=== PATIENT | male | born 1975 | race Caucasian/White ===

== ENCOUNTER 2018-02-03 21:55 | Emergency (ER) | payer BC, OTHER ==
[~2018-02-03] VITALS: Ht 180.3 cm; Wt 81.6 kg
--- NOTE | 2018-02-03 22:00 | NUR ---
[facility] 79 [facility]C "OVERDOSE ON 4 PILLS OF PRESCRIBED XANAX. PT EASILY AROUSABLE. NAD NOTED. RESPIRATIONS EVEN AND UNLABORED. PT ON MONITOR. WAITING ER MD EVALUATION
--- NOTE | 2018-02-03 22:27 | NUR ---
CONTINUOUS CONVEYOR SCREEN DRIER AT BEDSIDE FOR LABS
[2018-02-03 22:40] LABS: BASOPHILS % (AUTO) 0.3 % (0.0-2.0); EOSINOPHILS % (AUTO) 0.3 % (0.0-6.0); HEMATOCRIT 46 % (39-51); LYMPHOCYTES # (AUTO) 1.5 /CMM (0.8-4.8); LYMPHOCYTES % (AUTO) 19.1 % (20.0-44.0); MEAN CORPUSCULAR HEMOGLOBIN 30 PG (26.0-33.0); MEAN CORPUSCULAR HGB CONC 33 g/dl (31.0-36.0); MEAN CORPUSCULAR VOLUME 91 fL (80-96); MONOCYTES # (AUTO) 1.2 /CMM (0.1-1.30); NEUTROPHILS % (AUTO) 64.3 % (43.0-81.0); PLATELET COUNT (AUTO) 243 /CMM (150-450); RDW COEFFICIENT OF VARIATION 14.3 (11.5-15.0); RED BLOOD CELL COUNT(AUTO) 5.04 MIL/uL (4.5-6.0); WHITE BLOOD COUNT (AUTO) 7.8 K/uL (4.3-11.0)
[2018-02-03 22:52] LABS: CALCIUM, SERUM 8.6 mg/dL (8.5-10.1); CARBON DIOXIDE 23 mmol/L (21-32); CHLORIDE 102 mmol/L (98-107); CREATININE 1.4 mg/dL (0.6-1.3); GLUCOSE 125 mg/dL (74-106); POTASSIUM 3.5 mmol/L (3.5-5.1); SODIUM SERUM 138 mmol/L (136-145); UREA NITROGEN, BLOOD 24 mg/dL (7-18)
--- NOTE | 2018-02-03 22:54 | NUR ---
PT TO CT.
[2018-02-03 22:59] LABS: ALANINE AMINOTRANSFERASE 63 U/L (12-78); ALBUMIN 4.3 g/dL (3.4-5.0); ALCOHOL, BLOOD < 3 mg/dL (0-0); ALKALINE PHOSPHATASE 78 U/L (46-116); ASPARTATE AMINOTRANSFERASE 170 U/L (15-37); BILIRUBIN,DIRECT 0.3 mg/dL (0.0-0.2); TOTAL PROTEIN, SERUM 7.3 g/dL (6.4-8.2)
[2018-02-03 23:00] LABS: ACETAMINOPHEN 0 ug/ml (10-30); SALICYLATE 0.2 mg/dL (2.8-20.0)
--- NOTE | 2018-02-03 23:10 | NUR ---
PT BROUGHT BACK FROM CT
[2018-02-03 23:13] LABS: EOSINOPHILS % (MANUAL) 1 % (0-4); LYMPHOCYTES % (MANUAL) 20 % (16-48); MONOCYTES % (MANUAL) 11 % (0-11.0); NEUTROPHILS % (MANUAL) 68 (42-76)
--- NOTE | 2018-02-03 23:25 | NUR ---
URINE COLLECTED. CALLED LAB FOR EGG PACKER
[2018-02-03 23:36] LABS: APPEARANCE,URINE SL CLOUDY (CLEAR); BILIRUBIN,URINE NEGATIVE (NEGATIVE); BLOOD, URINE 1+ Ery/uL (NEGATIVE); COLOR,URINE YELLOW (YELLOW); KETONES,URINE NEGATIVE (NEGATIVE); LEUKOCYTE ESTERASE ,URINE NEGATIVE (NEGATIVE); NITRITE, URINE NEGATIVE (NEGATIVE); PROTEIN,URINE 1+ mg/dl (NEGATIVE); UGLUCOSE NEGATIVE (NEGATIVE); UROBILINOGEN,URINE 0.2 EU/dL (0.2)
[2018-02-03 23:44] LABS: BACTERIA,URINE Rare /HPF (None Seen); SPERM,URINE Moderate /HPF (None Seen); SQUAMOUS EPITHELIAL CELL,UR Few /HPF (None Seen); WBC,URINE 0-2 /HPF (0-3)
--- NOTE | 2018-02-04 02:06 | NUR ---
PT RESTING IN BED. PT ON MONITOR. VSS. CALL LIGHT WITHIN REACH
--- NOTE | 2018-02-04 06:00 | NUR ---
PT [id number]. AWARE.
--- NOTE | 2018-02-04 06:43 | NUR ---
Patient discharged to home in stable condition. Written and verbal after care instructions given. Patient verbalizes understanding of instruction. Pt ambulatory with a steady gait
--- NOTE | 2018-02-04 06:44 | NUR ---
PT INSTRUCTED NOT TO DRIVE HOME. PT VERBALIZED UNDERSTANDING.
[2018-02-04 06:45] VITALS: BP 108/72
== END 2018-02-04 06:46 | disposition home or self-care (01) ==
LOC: ER 21:56
DX: F19.10 Other psychoactive substance abuse, uncomplicated (principal); F13.10 Sedative, hypnotic or anxiolytic abuse, uncomplicated; F41.9 Anxiety disorder, unspecified; F32.9 Major depressive disorder, single episode, unspecified
CPT/HCPCS: 36415; 70450; 71045; 80048; 80076; 80305; 80329; 81001; 82962; 85025; 93005; 99285; A4606; A6402; G0480 ×2; Z7610; 81000-TC

== ENCOUNTER 2018-02-04 08:22 | Emergency (ER) | payer BC, OTHER ==
[~2018-02-04] VITALS: Ht 180.3 cm; Wt 89.4 kg
[2018-02-04 08:22] VITALS: BP 120/92
--- NOTE | 2018-02-04 08:54 | NUR ---
PT PROVIDED WITH BUS TOKEN BUT REFUSED. ALSO REFUSED TO SIGN DISCHARGE PAPERS. NOTED AMBULATORY WITH STEADY GAIT.
== END 2018-02-04 09:08 | disposition home or self-care (01) ==
LOC: ER 08:23
DX: F15.10 Other stimulant abuse, uncomplicated (principal); F41.9 Anxiety disorder, unspecified; F32.9 Major depressive disorder, single episode, unspecified; F17.200 Nicotine dependence, unspecified, uncomplicated
CPT/HCPCS: A4606; Z7502; Z7610

== ENCOUNTER 2018-02-04 11:22 | Emergency (ER) | payer BC, OTHER ==
[~2018-02-04] VITALS: Ht 180.3 cm; Wt 89.4 kg
--- NOTE | 2018-02-04 11:23 | NUR ---
PATIENT C/O "I AM ANXIOUS AND DEEPLY DEPRESSED" BUT DENIES SI/HI. PATIENT WAS JUST DISCHARGED EARLIER TODAY AND NOW CAME BACK. VSS. WAITING FOR MD ROTH
[2018-02-04 11:30] VITALS: BP 151/94
--- NOTE | 2018-02-04 12:00 | NUR ---
PATIENT WANTED TO LEAVE ASKING FOR TAXI VOUCHER. 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
--- NOTE | 2018-02-04 12:20 | NUR ---
REFUSED TO SIGN DISCHARGE PAPERWORK. REFUSED VS.
--- NOTE | 2018-02-04 12:25 | NUR ---
PATIENT WAS TOLD TO WAIT IN THE WAITING ROOM FOR HIS TAXI VOUCHER.
--- NOTE | 2018-02-04 12:40 | NUR ---
ER ADMITTING STAFF REPORTED THAT THEY SAW THE PATIENT LEFT WITHOUT TAKING THE TAXI VOUCHER. NOTIFIED COOLING ROOM ATTENDANT, AND
== END 2018-02-04 13:18 | disposition left against medical advice (07) ==
LOC: ER 11:23
DX: F15.10 Other stimulant abuse, uncomplicated (principal); F41.9 Anxiety disorder, unspecified; F32.9 Major depressive disorder, single episode, unspecified; F17.200 Nicotine dependence, unspecified, uncomplicated
CPT/HCPCS: A4606; Z7502; Z7610